=== PATIENT | female | born 2000 ===

== ENCOUNTER → 2018-07-25 22:12 | Outpatient (REF) | payer OTHER, SELFPAY ==
[2018-07-25 23:25] LABS: Add Manual Diff / Slide Review NO; Basophils Absolute Auto 100 /uL (0-100); Basophils Percent Auto 0.9 % (0-2); Eosinophils Absolute Auto 300 /uL (0-450); Eosinophils Percent Auto 3.7 % (2-4); Hematocrit 38.9 % (36-46); Hemoglobin 13.1 g/dL (12.0-16.0); Lymphocytes Absolute Auto 2000 /uL (1100-4500); Lymphocytes Percent Auto 27.7 % (25-40); Mean Corpuscular HGB Conc 33.6 % (30-36); Mean Corpuscular Hemoglobin 28.9 PG (26-34); Monocytes Absolute Auto 600 /uL (0-900); Monocytes Percent Auto 8.2 % (3-14); Neutrophils Absolute Auto 4400 /uL (1500-7000); Neutrophils Percent Auto 59.5 % (50-75); Platelet Count 282 X10^3/uL (150-400); Red Blood Cell Count 4.52 X10^6/uL (4.0-5.2); Red Cell Distribution Width 12.6 % (11.6-14.8); White Blood Cell Count 7.3 X10^3/uL (4.5-11.0)
[2018-07-25 23:29] LABS: Alanine Aminotransferase 20 IU/L (9-52); Albumin 4.5 g/dL (3.5-5.0); Albumin Globulin Ratio 1.6 (1.0-2.8); Alkaline Phosphatase 49 U/L (38-126); Aspartate Aminotransferase 26 IU/L (14-36); Bilirubin Total 0.6 mg/dL (0.2-1.3); Blood Urea Nitrogen 12 mg/dL (7-17); Calcium 9.5 mg/dL (8.4-10.2); Carbon Dioxide 28 mmol/L (22-32); Chloride 102 mmol/L (98-107); Estimated Glomerular Filt Rate > 60.0 mL/min (>60); Globulin 2.9 g/dL (1.7-4.1); Glucose 55 mg/dL (70-100); HEMOLYSIS 16 (0-50); Potassium 4.6 mmol/L (3.4-5.1); Sodium 139 mmol/L (137-145); Total Protein 7.4 g/dL (6.3-8.2)
[2018-07-25 23:47] LABS: HEMOLYSIS < 15 (0-50); Iron 162 ug/dL (37-170)
[2018-07-25 23:49] LABS: Monotest Negative (Negative)
[2018-07-25 23:58] LABS: Percent Iron Saturation 50 % (15-50); Total Iron Binding Capacity 321 ug/dL (265-497); Transferrin 238 mg/dL (206-381)
[2018-07-26 00:03] LABS: Ferritin 19.8 ng/mL (6.27-137)
== END ==
LOC: LAB 22:12
PROVIDERS: Visit Provider Family Medicine
DX: R53.83 Other fatigue (principal); B34.9 Viral infection, unspecified; E61.1 Iron deficiency
CPT/HCPCS: 36415; 80053; 82728; 83540; 83550; 85025; 86318